=== PATIENT | female | born 1985 | race Caucasian/White ===

== ENCOUNTER → 2017-01-20 | Outpatient (CLI) | payer BC ==
[~2017-01-20] VITALS: Ht 168.9 cm; Wt 120.2 kg
[~2017-01-20] MED LIST: ADVIL200 MG PO; CYMBALTA 60MG60 MG PO; ESTRACE2 MG PO; FLEXERIL 1010 MG/TAB PO; NEURONTIN300 MG/CAP PO; PRIL40 PO; TYLENOL 500MG500 MG PO
[2017-01-20 08:13] VITALS: BP 124/60; PULSE 64
== END ==
LOC: LIGHT 08:00
DX: M15.9 Polyosteoarthritis, unspecified (principal); M54.5 Low back pain; K21.9 Gastro-esophageal reflux disease without esophagitis; E16.1 Other hypoglycemia; Z68.41 Body mass index [BMI] 40.0-44.9, adult; Z71.3 Dietary counseling and surveillance

== ENCOUNTER → 2017-02-02 | Outpatient (CLI) | payer BC | LOC: LIGHT 14:32 | DX: Z01.818 Encounter for other preprocedural examination (principal) ==

== ENCOUNTER → 2017-02-18 | Outpatient (CLI) | payer BC ==
[~2017-02-18] VITALS: Ht 168.9 cm; Wt 119.7 kg
[2017-02-18 15:55] VITALS: BP 134/80; PULSE 104
== END ==
LOC: LIGHT 12:34
DX: M15.9 Polyosteoarthritis, unspecified (principal); M54.5 Low back pain; K21.9 Gastro-esophageal reflux disease without esophagitis; E16.1 Other hypoglycemia; Z68.41 Body mass index [BMI] 40.0-44.9, adult; Z71.3 Dietary counseling and surveillance

== ENCOUNTER → 2017-03-25 | Outpatient (CLI) | payer BC ==
[~2017-03-25] VITALS: Ht 168.9 cm; Wt 118.8 kg
[2017-03-25 16:38] VITALS: BP 128/80; PULSE 76
== END ==
LOC: LIGHT 13:44
DX: M15.9 Polyosteoarthritis, unspecified (principal); M54.5 Low back pain; K21.9 Gastro-esophageal reflux disease without esophagitis; E16.1 Other hypoglycemia; Z68.41 Body mass index [BMI] 40.0-44.9, adult; Z71.3 Dietary counseling and surveillance

== ENCOUNTER → 2017-03-30 | Outpatient (CLI) | payer BC ==
[~2017-03-30] VITALS: Ht 168.9 cm; Wt 117.2 kg
[2017-03-30 12:50] VITALS: BP 143/96; PULSE 98
[2017-03-30 13:35] VITALS: BP 117/58; PULSE 87
[2017-03-30 13:50] VITALS: BP 117/68; PULSE 87
[2017-03-30 14:05] VITALS: BP 102/56; PULSE 82
[2017-03-30 14:25] LABS: CEREBROSPINAL TUBE #4; CSF APPEARANCE CLEAR; CSF COLOR COLORLESS; CSF POLYMORPHONUCLEAR 6 % (0-6)
[2017-03-30 14:30] VITALS: BP 110/58; PULSE 83
[2017-04-02 08:58] LABS: ALBUMIN CSF 17.7 mg/dL (<=27.0); CSF IGG/ALBUMIN 0.12 (<=0.21); CSF,IGG 2.2 mg/dL (<=8.1)
[2017-04-02 09:08] LABS: CSF SYNTHESIS RATE 0.34 mg/24 h (<=12); CSF-IGG INDEX 0.52 (<=0.85); IGG/ALBUMIN SERUM 0.23 (<=0.40)
== END ==
LOC: COL.RAD 12:15
PROVIDERS: Psychiatry & Neurology Neurology
DX: R51 Headache (principal)

== ENCOUNTER 2017-04-01 18:04 | Emergency (ER) | payer BC ==
[~2017-04-01] VITALS: Ht 167.6 cm; Wt 117.3 kg
[2017-04-01 18:06] VITALS: TEMP 98.1
[2017-04-01 18:58] LABS: BASO # 0.1 (0.0-0.2); BASO % 0.5 % (0.0-2.0); EOS # 0.2 (0.0-0.7); EOS % 1.8 % (0-4.0); GRAN # 6.6 (1.4-6.5); GRAN % 60.7 % (42.2-75.2); LYMPH # 3.4 (1.2-3.4); LYMPH % 31.2 % (20.0-51.0); MEAN CELL VOLUME 94 fl (80.0-100.0); MEAN CORPUSCULAR HGB CONC 33 g/dl (33.0-37.0); MEAN PLATELET VOLUME 9.2 fl (7.4-10.4); MONO # 0.6 (0.1-0.6); MONO % 5.4 % (1.7-9.3); PLATELET COUNT 278 K/mm3 (130-400); RED BLOOD COUNT 3.39 M/mm3 (4.10-5.30); WHITE BLOOD COUNT 10.8 K/mm3 (4.8-10.8)
[2017-04-01 18:59] LABS: HEMOGLOBIN 10.6 g/dl (12.5-16.0); MEAN CORPUSCULAR HEMOGLOBIN 31 pg (27.0-31.0)
[2017-04-01 19:22] LABS: ADJUSTED CALCIUM 8.8 mg/dL (8.4-10.2); ALBUMIN 4.7 gm/dL (3.5-5.0); BILIRUBIN,TOTAL 0.7 mg/dL (0.0-1.0); C-REACTIVE PROTEIN 1.3 mg/dL (0.0-0.9); CALCIUM 9.4 mg/dL (8.4-10.2); CREATININE, serum 0.58 mg/dL (0.52-1.25); POTASSIUM 3.8 mmol/L (3.4-5.0); TOTAL PROTEIN 7.6 gm/dL (6.4-8.2)
[2017-04-01 19:43] VITALS: BP 148/58; PULSE 97
== END 2017-04-01 19:43 | disposition home or self-care (01) ==
LOC: COL.ER 18:04
PROVIDERS: Emergency Medicine
DX: R51 Headache (principal); Z90.710 Acquired absence of both cervix and uterus
CPT/HCPCS: J1170; J1200; J1885; J2550; J7030

== ENCOUNTER → 2017-04-29 | Outpatient (CLI) | payer BC ==
[~2017-04-29] VITALS: Ht 167.6 cm; Wt 120.4 kg
[~2017-04-29] MED LIST changes: +GLUCOPHAGE XR500 M1 PO; +LASIX 20MG TABL20 MG PO; +MICRO-K EXTENCA8 MEQ PO
[2017-04-29 16:32] VITALS: BP 106/60; PULSE 92
== END ==
LOC: LIGHT 12:42
DX: M15.9 Polyosteoarthritis, unspecified (principal); M54.5 Low back pain; K21.9 Gastro-esophageal reflux disease without esophagitis; E16.1 Other hypoglycemia; Z68.41 Body mass index [BMI] 40.0-44.9, adult; Z71.3 Dietary counseling and surveillance

== ENCOUNTER → 2017-05-05 | Outpatient (CLI) | payer BC | LOC: LIGHT 08:53 | DX: Z01.818 Encounter for other preprocedural examination (principal) ==

== ENCOUNTER → 2017-06-10 | Outpatient (CLI) | payer OTHER | LOC: BHSO 09:03 | DX: Z01.818 Encounter for other preprocedural examination (principal) ==

== ENCOUNTER → 2017-06-21 | Outpatient (CLI) | payer OTHER ==
[~2017-06-21] VITALS: Ht 167.6 cm; Wt 118.8 kg
[2017-06-21 15:31] VITALS: BP 160/84; PULSE 96
== END ==
LOC: LIGHT 15:16
DX: M15.9 Polyosteoarthritis, unspecified (principal); M54.5 Low back pain; K21.9 Gastro-esophageal reflux disease without esophagitis; E16.1 Other hypoglycemia; Z68.41 Body mass index [BMI] 40.0-44.9, adult; Z71.3 Dietary counseling and surveillance

== ENCOUNTER 2017-07-02 06:35 | Day surgery (SDC) | payer OTHER ==
[~2017-07-02] VITALS: Ht 167.6 cm; Wt 119.9 kg
[2017-07-02 06:58] VITALS: BP 136/96; PULSE 90; TEMP 98.2
[2017-07-02 08:05] VITALS: BP 138/82; PULSE 95; TEMP 98.1
[2017-07-02 08:20] VITALS: BP 126/67; PULSE 90
[2017-07-02 08:35] VITALS: BP 136/76; PULSE 84
== END 2017-07-02 08:56 | disposition home or self-care (01) ==
LOC: SDCO 06:35
DX: K44.9 Diaphragmatic hernia without obstruction or gangrene (principal); K21.9 Gastro-esophageal reflux disease without esophagitis; G47.33 Obstructive sleep apnea (adult) (pediatric); M19.90 Unspecified osteoarthritis, unspecified site; F41.9 Anxiety disorder, unspecified; D58.1 Hereditary elliptocytosis; E66.01 Morbid (severe) obesity due to excess calories; Z68.41 Body mass index [BMI] 40.0-44.9, adult; Z90.49 Acquired absence of other specified parts of digestive tract; Z90.710 Acquired absence of both cervix and uterus; Z90.721 Acquired absence of ovaries, unilateral; Z90.79 Acquired absence of other genital organ(s); Z79.84 Long term (current) use of oral hypoglycemic drugs; Z79.52 Long term (current) use of systemic steroids; Z88.1 Allergy status to other antibiotic agents; Z88.3 Allergy status to other anti-infective agents; Z87.891 Personal history of nicotine dependence
CPT/HCPCS: OP; J2250; J2405; J3010; J7030

== ENCOUNTER → 2017-07-19 | Outpatient (CLI) | payer OTHER ==
[~2017-07-19] VITALS: Ht 167.6 cm; Wt 120.2 kg
== END ==
LOC: LIGHT 09:39
DX: Z01.89 Encounter for other specified special examinations (principal)

== ENCOUNTER 2017-08-04 07:34 | Day surgery (SDC) | payer OTHER ==
[~2017-08-04] VITALS: Ht 167.6 cm; Wt 113.0 kg
[2017-08-04] VITALS (9 sets, daily range): BP systolic 120–133; BP diastolic 68–80; PULSE 80–95; TEMP 97.9–98.2
[2017-08-05 01:36] VITALS: BP 120/76; PULSE 93; TEMP 98.2
[2017-08-05 05:33] VITALS: BP 147/88; PULSE 90; TEMP 97.9
[2017-08-05 08:50] VITALS: BP 120/60; PULSE 95; TEMP 98.1
[2017-08-05 14:02] VITALS: BP 108/56; PULSE 89; TEMP 98.4
[2017-08-05 18:15] VITALS: BP 143/77; PULSE 85; TEMP 98.5
== END 2017-08-05 19:48 | disposition home or self-care (01) ==
LOC: SDCO 07:34 → JCC 15:02 → SDCO 08-05 19:48
DX: E66.01 Morbid (severe) obesity due to excess calories (principal); Z68.41 Body mass index [BMI] 40.0-44.9, adult; K44.9 Diaphragmatic hernia without obstruction or gangrene; G47.30 Sleep apnea, unspecified; K21.9 Gastro-esophageal reflux disease without esophagitis; G47.33 Obstructive sleep apnea (adult) (pediatric); M79.7 Fibromyalgia; F41.9 Anxiety disorder, unspecified; Z87.891 Personal history of nicotine dependence; Z88.1 Allergy status to other antibiotic agents; Z91.041 Radiographic dye allergy status; M19.90 Unspecified osteoarthritis, unspecified site
CPT/HCPCS: OP; A9284; J1100; J1885; J2270; J2405; J2550; J2704; J2710; J3010; J7030

== ENCOUNTER → 2017-08-16 | Outpatient (CLI) | payer OTHER ==
[~2017-08-16] VITALS: Ht 167.6 cm; Wt 110.4 kg
[2017-08-16 13:59] VITALS: BP 118/70; PULSE 80
== END ==
LOC: LIGHT 09:03
DX: Z98.84 Bariatric surgery status (principal); M54.5 Low back pain; K21.9 Gastro-esophageal reflux disease without esophagitis; E16.1 Other hypoglycemia; Z68.39 Body mass index [BMI] 39.0-39.9, adult; Z71.3 Dietary counseling and surveillance

== ENCOUNTER → 2017-09-13 | Outpatient (CLI) | payer OTHER ==
[~2017-09-13] VITALS: Ht 167.6 cm; Wt 104.8 kg
[~2017-09-13] MED LIST changes: +FLINTSTONES COM1 CT1 PO; +HARD NAILS 2.51 CAP PO; +VITAMIN D31000 IU PO
[2017-09-13 16:29] VITALS: BP 120/72; PULSE 64
== END ==
LOC: LIGHT 14:44
DX: Z98.84 Bariatric surgery status (principal); M54.5 Low back pain; K21.9 Gastro-esophageal reflux disease without esophagitis; E16.1 Other hypoglycemia; Z68.37 Body mass index [BMI] 37.0-37.9, adult; Z71.3 Dietary counseling and surveillance

== ENCOUNTER → 2017-11-08 | Outpatient (CLI) | payer OTHER ==
[~2017-11-08] VITALS: Ht 167.6 cm; Wt 97.1 kg
[~2017-11-08] MED LIST changes: +ATIVAN 0.50.5 MG/TAB PO
[2017-11-08 16:13] VITALS: BP 114/80; PULSE 80
== END ==
LOC: LIGHT 15:55
DX: Z98.84 Bariatric surgery status (principal); M54.5 Low back pain; K21.9 Gastro-esophageal reflux disease without esophagitis; E16.1 Other hypoglycemia; Z68.34 Body mass index [BMI] 34.0-34.9, adult; Z71.3 Dietary counseling and surveillance
CPT/HCPCS: G0463

== ENCOUNTER → 2018-01-31 | Outpatient (CLI) | payer OTHER ==
[~2018-01-31] VITALS: Ht 167.6 cm; Wt 90.5 kg
[2018-01-31 16:25] VITALS: BP 118/80; PULSE 88
== END ==
LOC: LIGHT 13:41
DX: M54.5 Low back pain (principal); E16.9 Disorder of pancreatic internal secretion, unspecified; K21.9 Gastro-esophageal reflux disease without esophagitis; Z98.84 Bariatric surgery status; E66.3 Overweight; Z68.32 Body mass index [BMI] 32.0-32.9, adult; Z71.3 Dietary counseling and surveillance
CPT/HCPCS: G0463

== ENCOUNTER 2023-12-31 08:25 | Day surgery (SDC) | payer OTHER ==
[~2023-12-31] VITALS: Ht 167.6 cm; Wt 81.6 kg
[~2023-12-31 08:25] MED LIST changes: +LR 1,000 ML IV SCH; +Ondansetron 4 MG/2 ML VIAL IV PRN
[2023-12-31] MEDS ORDERED: MOUNJARO15 MG/0.5 SQ (09:03)
[2023-12-31] MEDS ORDERED: ULTRAM 50MG TAB50 MG PO (09:03)
[2023-12-31] MEDS ORDERED: TROKEND50 PO (09:04)
[2023-12-31] MEDS ORDERED: ALDACTONE50 MG PO (09:04)
[2023-12-31] MEDS ORDERED: ADDERALL20 MG PO (09:05)
[2023-12-31] MEDS ORDERED: MAGNESIUM GLUC500 MG PO (09:06)
[2023-12-31 09:08] VITALS: BP 105/67; PULSE 91; TEMP 96
--- NOTE | 2023-12-31 09:24 | NUR ---
Pt admitted to [facility] bay 3, alert oriented x4, ambulates with steady gait. Admission assessments complete. MEdications, allergies, pharmacy reviewed. 20G IV inserted into right hand, LR infusing without difficulty. Pt reports prep was effective- clear stools. Mother brought to bedside. Consents signed. PT resting in recliner with feet up. Oriented to room and call light, call light within reach.
[2023-12-31] MEDS ORDERED: Lidocaine PF 2% (20 MG/ML) 5 ML VIAL ONE (10:03)
[2023-12-31 10:35] VITALS: BP 96/71; PULSE 78; TEMP 97.8
[2023-12-31 10:45] VITALS: BP 98/67; PULSE 74
[2023-12-31 11:10] VITALS: BP 96/71; PULSE 82
--- NOTE | 2023-12-31 15:09 | NUR ---
1035- PT RETURNS FROM ENDO PROCEDURE VIA CART AND RN ASSIST TO GI BAY. PT AMBULATES FROM CART TO RECLINER WHT ASSIST. MONITORS ON AND ALARMS SET. CALL LIGHT WITHIN REACH. REPORT RECEIVED. PT ALERT AND ORIENTED. PT REQUESTS FOOD AND DRINK. PT DENIES ANY PAIN OR NAUSEA. 1045- PT TAKING FOOD AND DRINK WELL. NO COMPLICATIONS NOTED. 1055- DISCHARGE INSTRUCTIONS GIVEN TO PT. ALL QUESTIONS ANSWERED. 1105- PT TRANSFERRED OUT OF THE HOSPITAL VIA WHEELCHAIR AND ASSIST TO PRIVATE VEHICLE DRIVEN BY MOM.
== END 2023-12-31 11:05 | disposition home or self-care (01) ==
LOC: SDCO 08:25
DX: K59.00 Constipation, unspecified (principal); K64.0 First degree hemorrhoids; Z87.891 Personal history of nicotine dependence; E11.9 Type 2 diabetes mellitus without complications; Z79.4 Long term (current) use of insulin
CPT/HCPCS: J2704; J7120